=== PATIENT | female | born 1990 | race Caucasian/White ===

== ENCOUNTER 2017-11-07 22:51 | Emergency (ER) | payer OTHER ==
[~2017-11-07] VITALS: Ht 154.9 cm; Wt 55.0 kg
[2017-11-07 22:55] VITALS: BP 113/59; TEMP 98.9
[2017-11-07] MEDS ORDERED: PRENATAL FORMU1 EAC3 PO (23:00)
[2017-11-07] MEDS ORDERED: ZYRTEC 10MG10 MG PO (23:01)
[2017-11-08 00:17] VITALS: PULSE 78
[2017-11-08 00:54] LABS: HIV 1/2 Antibodies Non-Reactive; HIV-1p24 Antigen Non-Reactive
[2017-11-08 16:00] LABS: HEPATITIS C VIRUS ANTIBODY Negative (())
== END 2017-11-08 00:17 | disposition home or self-care (01) ==
LOC: COL.ER 22:51
PROVIDERS: Nurse Practitioner
DX: Z77.21 Contact with and (suspected) exposure to potentially hazardous body fluids (principal); W46.1XXA Contact with contaminated hypodermic needle, initial encounter; Y92.89 Other specified places as the place of occurrence of the external cause

== ENCOUNTER 2017-12-17 12:54 | Outpatient (RCR) | payer OTHER ==
[~2017-12-17 12:54] MED LIST: PRENATAL FORMU1 EAC3 PO; ZYRTEC 10MG10 MG PO
== END 2018-03-17 | disposition home or self-care (01) ==
LOC: WSOH
DX: Z77.21 Contact with and (suspected) exposure to potentially hazardous body fluids (principal); W46.0XXD Contact with hypodermic needle, subsequent encounter; Z88.1 Allergy status to other antibiotic agents; Z33.1 Pregnant state, incidental

== ENCOUNTER 2018-07-29 20:14 | Outpatient (CLI) | payer OTHER ==
[~2018-07-29] VITALS: Ht 154.9 cm; Wt 65.0 kg
[2018-07-29 20:48] VITALS: BP 115/73; PULSE 85; TEMP 98.5
[2018-07-29] MEDS ORDERED: ZOFRAN 4MG T4 MG/TAB PO (20:51)
== END 2018-07-29 22:16 | disposition home or self-care (01) ==
LOC: LDRO 20:14
DX: Z03.71 Encounter for suspected problem with amniotic cavity and membrane ruled out (principal); Z3A.38 38 weeks gestation of pregnancy; Z87.440 Personal history of urinary (tract) infections

== ENCOUNTER 2018-08-01 08:34 | Inpatient (IN) | payer OTHER ==
[2018-08-01] VITALS (48 sets, daily range): BP systolic 99–152; BP diastolic 54–85; PULSE 80–123; TEMP 97.3–98.8
[~2018-08-01] VITALS: Ht 154.9 cm; Wt 65.5 kg
[~2018-08-01 08:34] MED LIST changes: +ZOFRAN 4MG T4 MG/TAB PO
[2018-08-01 11:12] LABS: BASO % 0.2 % (0.0-2.0); EOS % 0.3 % (0-4.0); GRAN # 10.1 (1.4-6.5); GRAN % 79.4 % (42.2-75.2); HEMOGLOBIN 11.1 g/dl (12.5-16.0); LYMPH # 1.6 (1.2-3.4); LYMPH % 12.5 % (20.0-51.0); MEAN CELL VOLUME 85 fl (80.0-100.0); MEAN CORPUSCULAR HEMOGLOBIN 29 pg (27.0-31.0); MEAN CORPUSCULAR HGB CONC 34 g/dl (33.0-37.0); MEAN PLATELET VOLUME 10.7 fl (7.4-10.4); MONO # 0.9 (0.1-0.6); MONO % 7.1 % (1.7-9.3); PLATELET COUNT 275 K/mm3 (130-400); RED BLOOD COUNT 3.87 M/mm3 (4.10-5.30); REDCELL DISTRIBUTION WIDTH-CV 13.5 % (11.5-14.5)
[2018-08-02] VITALS (8 sets, daily range): BP systolic 108–128; BP diastolic 65–80; PULSE 86–105; TEMP 97.6–97.9
[2018-08-03 10:00] VITALS: BP 107/76; PULSE 84; TEMP 98.3
[2018-08-03] MEDS ORDERED: IBU800 M1 PO (11:40)
[2018-08-03] MEDS ORDERED: PERCOCET 325 MG1 TA2 PO (11:40)
== END 2018-08-03 18:00 | disposition home or self-care (01) | DRG 775 ==
LOC: LDRO 08:34 → LDR 10:30 → OB 10:30
PROVIDERS: Student in an Organized Health Care Education/Training Program
PROC: 10E0XZZ Delivery of Products of Conception, External Approach (ICD-10-PCS; principal; 2018-08-01)
PROC: 0HQ9XZZ Repair Perineum Skin, External Approach (ICD-10-PCS; 2018-08-01)
PROC: 0UQMXZZ Repair Vulva, External Approach (ICD-10-PCS; 2018-08-01)
DX: O76 Abnormality in fetal heart rate and rhythm complicating labor and delivery (principal); Z3A.38 38 weeks gestation of pregnancy; Z37.0 Single live birth; O71.82 Other specified trauma to perineum and vulva; O70.0 First degree perineal laceration during delivery; N80.0 Endometriosis of uterus; E28.2 Polycystic ovarian syndrome; Z22.330 Carrier of Group B streptococcus; O99.344 Other mental disorders complicating childbirth; F41.8 Other specified anxiety disorders
CPT/HCPCS: J2540; J2590; J7120